=== PATIENT | female | born 1960 ===

== ENCOUNTER 2017-12-10 07:38 | Day surgery (SDC) | payer OTHER ==
[2017-12-10] VITALS (9 sets, daily range): BP systolic 92–120; BP diastolic 62–76
[~2017-12-10] VITALS: Ht 162.6 cm; Wt 80.7 kg
--- NOTE | 2017-12-10 06:30 | Anethesia Preoperative Eval ---
Anesthesia Pre-op PMH/ROS General Date of Evaluation: Dec 10, 2017 Time of Evaluation: 06:28 Anesthesiologist: steph ASA Score: ASA 2 Mallampati Score Class I : Soft palate, uvula, fauces, pillars visible Class II: Soft palate, uvula, fauces visible Class III: Soft palate, base of uvula visible Class IV: Only hard plate visible Mallampati Classification: Class II Surgeon: terry Diagnosis: gerd Surgical Procedure: egd Anesthesia History: none - egd Family History: no anesthesia problems Allergies: Coded Allergies: PENICILLINS (Verified Allergy, Severe, RASH/HIVES, 12/09/17) Medications: see eMAR Past Medical History Gastrointestinal/Genitourinary: Reports: GERD Neurologic/Psychiatric: Reports: depression/anxiety Musculoskeletal/Integumentary: Reports: other - joint pain Other: obesity Anesthesia Pre-op Phys. Exam Physician Exam Last Vital Signs Date Time Temp Pulse Resp B/P (MAP) Pulse Ox O2 Delivery O2 Flow Rate FiO2 12/10/17 08:31 Room Air 12/10/17 08:19 96.5 78 18 120/76 (91) 97 96.5 Constitutional: NAD Neurologic: CN 2-12 intact Cardiovascular: RRR Respiratory: CTA Gastrointestinal: S/NT/ND Airway Exam Mallampati Score: Class II MO: full Neck: supple TMD: 2fb ROM: full Teeth: intact Anesthesia Pre-op A/P Risk Assessment & Plan Assessment: asa2 Plan: mac Status Change Before Surgery: No Pre-Antibiotics Drug: Park Wallace MD Dec 10, 2017 06:30
[~2017-12-10 07:38] MED LIST: Atropine Inj 1mg/10ml Syr IV PRN; DiphenhydrAMINE 50mg/ml Inj IVP PRN; Labetalol 5mg/ml 20ml vial IV PRN; Midazolam 2mg/2ml Inj IVP PRN; fentaNYL 100 mcg/2 mL IV PRN
[2017-12-10] MEDS ORDERED: PANTOPRAZOLE SO40 MG ORAL (08:18)
[2017-12-10] MEDS ORDERED: ZYRTEC10 MG ORAL (08:18)
--- NOTE | 2017-12-10 08:24 | Short Stay Surgery H&P ---
History of Present Illness History of Present Illness Chief Complaint Abdominal pains and GERDs symptoms. BOB Lujan is a 57 year old female who was admitted on for GERD/ Abdominal pains Patient History Allergies: Coded Allergies: PENICILLINS (Verified Allergy, Severe, RASH/HIVES, 12/09/17) PAST MEDICAL HISTORY: (1) Nasal inflammation due to allergen Past Surgeries: (1) S/P operation on nasal septum Medication History Scheduled Cetirizine Hcl* (Zyrtec*), 10 MG ORAL DAILY, (Reported) Pantoprazole* (Pantoprazole*), 40 MG ORAL DAILY, (Reported) Review of Systems Cardiovascular: Reports: no symptoms Respiratory: Reports: no symptoms Skeletal: Reports: trauma Gastrointestinal: Reports: gastro esophageal reflux disease Genitourinary: Reports: no symptoms Neurologic: Reports: no symptoms Endocrine: Reports: no symptoms Hematologic: Reports: no symptoms Physical Exam Skin: normal HENT: normal Lungs: normal Abdomen: abnormal Extremities: normal Genitourinary: normal Plan Plan of Care Upper GI endoscopy with biopsy Preop Interventions None. Summary of Findings See the reports Attestation Are the patient's medical conditions optimized for surgery? Attestation Response: yes Rojelio Solomon MD Dec 10, 2017 08:24
--- NOTE | 2017-12-10 08:25 | Pre-Procedure Note/Attestation ---
Pre-Procedure Note/Attestation Complete Prior to Procedure Planned Procedure: left Procedure Narrative: Examination of the upper GI tract via endoscopic exam Indications for Procedure Pre-Operative Diagnosis: R/O Peptic ulcer/Gastritis/esophagitis. Attestation I attest that I discussed the nature of the procedure; its benefits; risks and complications; and alternatives (and the risks and benefits of such alternatives ), prior to the procedure, with the patient (or the patient's legal patient representative). I attest that, if there was a reasonable possibility of needing a blood transfusion, the patient (or the patient's legal patient representative) was given the [place] [facility] standardized written summary, pursuant to the Nigel Carol Blood Safety Act ([place] Health and Safety Code # 1645, as amended). I attest that I re-evaluated the patient just prior to the surgery and that there has been no change in the patient's H&P, except as documented below: Rojelio Solomon MD Dec 10, 2017 08:25
--- NOTE | 2017-12-10 08:26 | Pre-Procedure Note/Attestation ---
Pre-Procedure Note/Attestation Complete Prior to Procedure Planned Procedure: left Procedure Narrative: Upper Gi endoscopy and biopsy Indications for Procedure Pre-Operative Diagnosis: R/O Peptic ulcer/Gastritis/esophagitis. Attestation I attest that I discussed the nature of the procedure; its benefits; risks and complications; and alternatives (and the risks and benefits of such alternatives ), prior to the procedure, with the patient (or the patient's legal business process representative). I attest that, if there was a reasonable possibility of needing a blood transfusion, the patient (or the patient's legal business process representative) was given the [facility] standardized written summary, pursuant to the Nigel Carol Blood Safety Act ([place] Health and Safety Code # 1645, as amended). I attest that I re-evaluated the patient just prior to the surgery and that there has been no change in the patient's H&P, except as documented below: Rojelio Solomon MD Dec 10, 2017 08:26
[2017-12-10] MEDS ORDERED: Propofol 200mg/20ml IV ONE (08:30)
[2017-12-10] MEDS ORDERED: Lidocaine 1% MPF 10mg/ml 5ml ONE (08:30)
[2017-12-10] MEDS ORDERED: LR 1000ml ONE (08:30)
--- NOTE | 2017-12-10 08:43 | Endoscopy Procedure Note ---
Endoscopy Procedure Note General Indication for Procedure: Abdominal pains and heartburn Procedures Performed: EGD - Moderate generalized gastritis otherwise normal upper GI endoscopy. Biopsy done per random from gastric body. Specimen: yes Estimated Blood Loss: none Anesthesia Anesthesiologist: Dr. Brumfield Anesthesia: moderate sedation Medications Medication Given: see anesthesia record Inserted Devices Implant(s) used?: No Quality Quality of Bowel Preparation: Excellent GI Core Measures 50 yrs or older w/o bx or poly: Not Applicable 10yrs. F/U not recommended: Not Applicable If not recommended, why?: Med reason:<3 yrs.: System Reason:<3 yrs.: Rojelio Solomon MD Dec 10, 2017 08:43
--- NOTE | 2017-12-10 08:44 | Discharge Instructions ---
Discharge Instructions Discharge Instructions Follow up with: Visit the doctor in office after two weeks. For Congestive Heart Failure Reminder Report to your physician any weight gain of 5 pounds or more in one week. Rojelio Solomon MD Dec 10, 2017 08:44
--- NOTE | 2017-12-10 09:02 | Immediate Post-Op Evaluation ---
Immediate Post-Op Evalulation Immediate Post-Op Evalulation Procedure: egd w/bx Date of Evaluation: Dec 10, 2017 Time of Evaluation: 09:02 IV Fluids: 250ml lr Blood Products: none Estimated Blood Loss: negligible Blood Pressure Systolic: 98 Blood Pressure Diastolic: 63 Pulse Rate: 71 Respiratory Rate: 18 O2 Sat by Pulse Oximetry: 100 Temperature (Fahrenheit): 97.0 Pain Score (1-10): 0 Nausea: No Vomiting: No Complications none Patient Status: awake, reacts, patent Hydration Status: adequate Drug: Park Wallace MD Dec 10, 2017 09:02
--- NOTE | 2017-12-10 12:24 | 48 Hour Post Anesthesia Eval ---
Post Anesthesia Evaluation Procedure: egd w/bx Date of Evaluation: Dec 10, 2017 Time of Evaluation: 09:04 Blood Pressure Systolic: 97 0: 65 Pulse Rate: 70 Respiratory Rate: 18 Temperature (Fahrenheit): 97.0 O2 Sat by Pulse Oximetry: 99 Airway: patent Nausea: No Vomiting: No Pain Intensity: 0 Hydration Status: adequate Cardiopulmonary Status: stable Mental Status/LOC: patient returned to baseline Post-Anesthesia Complications: none Follow-up care needed: N/A Park Tirado MD Dec 10, 2017 12:24
--- NOTE | 2017-12-10 18:31 | Operative Note - Dictated ---
DATE OF OPERATION: 12/10/2017 SURGEON: Rojelio Solomon M.D. PROCEDURE: Esophagogastroduodenoscopy with biopsy. PREOPERATIVE DIAGNOSIS: Abdominal pain, epigastric pain, and heartburn. POSTOPERATIVE DIAGNOSES: 1. Moderate-sized hiatal hernia. 2. Moderate generalized gastritis, biopsy was taken per random from gastric body. MEDICATION USED: Per anesthesiologist, Dr. Brumfield. INSTRUMENT: GIF Olympus upper GI video endoscope. DESCRIPTION OF PROCEDURE: The patient after arriving endoscopy unit, was told about risks and benefits of the procedure, which she accepted and signed informed consent. She was then put on the left lateral decubitus position. After adequate IV sedation, the scope was gently passed through the cricopharyngeal area, was lodged in the upper esophagus, and gradually advanced towards gastroesophageal junction. The entire length of the esophagus looked normal without any evidence of pathology such as stricture, inflammatory process, ulcers, etc. GE junction also looked normal. There was no Cohn's, however, the GE junction was located at the 30 cm from the cricopharyngeal area. There was evidence of moderate-sized hiatal hernia noted. At this point, the scope was advanced into the stomach. Gastric cavity was distended and gradually the areas of the fundus and the body and the antrum were examined, which revealed evidence of moderate generalized gastritis presenting with moderate erythema of the gastric mucosa, but there was no ulcers, tumors, bleeding site etc. At this point, one random biopsy from gastric body was obtained and subsequently, the scope was passed through the normal-looking pylorus. First and second portion of duodenum were found to be also completely normal. At this time, the scope was pulled out into the stomach. A retroflexion maneuver was applied and no other pathology found. Finally, the scope was pulled out and the procedure was terminated. The patient tolerated the procedure well and left the endoscopy room in good condition. Rojelio Solomon M.D. DR: SYED JOB#: [id number] CC:
--- NOTE | 2017-12-10 18:31 | Pre-op HX & Phy Repo 2 SIG ---
DATE OF ADMISSION: 12/10/2017 HISTORY OF PRESENT ILLNESS: The applicant is a 57-year-old non-Indian speaking female, who is being seen prior to undergoing the procedure of upper GI endoscopy for which she has been scheduled to receive for evaluation of gastrointestinal condition that she has been experiencing subsequent to her work injury. The applicant basically complained of having pains over the upper part of the abdomen, which is quite cumbersome associated with moderate heartburn. The applicant also report that these symptoms occur after she eats food though she has been under significant stress and anxiety and depression subsequent to her work injury. 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 The applicant denies having any major difficulty swallowing such as dysphagia, odynophagia, etc. There has been no history of hematemesis, melena, hematochezia, gastrointestinal bleeding, etc. The applicant does have history of taking nonsteroidal anti-inflammatory agents such as ibuprofen and Motrin for a long period of time in the past for the treatment of the pain that she has suffered subsequent to her work injury. The injuries were happening mostly in the 2013 when she was pulling a heavy chair and she injured her left upper extremity, left shoulder, and also had other pains over different parts of the body including the neck, etc. She had complete workup in the past by physicians. PAST MEDICAL HISTORY: The applicant denies having high blood pressure, arthritis, hyperlipidemia, diabetes, etc. SURGERIES: The patient has had some nasal surgeries questionably for cancer, but the exact nature of this is not clear. PRESENT MEDICATIONS: Protonix, propionate, fluticasone, and antihistamines. ALLERGIES: Penicillin and pollen and dust. FAMILY HISTORY: None significant. HABITS: The applicant denies drinking alcohol or smoking cigarettes. REVIEW OF SYSTEMS: Basically history of present illness and the patient complains of significant anxiety and stress related to work accident with abdominal pain as I mentioned. PHYSICAL EXAMINATION: GENERAL: At this time reveals an alert and oriented female, does not seem to be in any acute distress. She looks overweight. VITAL SIGNS: All stable. HEENT: Normocephalic. Pupils are equal in size and reactive to light and accommodation. No conjunctival jaundice. NECK: Supple. No JVD, thyromegaly, or adenopathy. CHEST: Clear to auscultation and percussion. No rales or rhonchi. HEART: S1 and S2 normal. Regular rhythm. No gallops or murmur. ABDOMEN: Soft, but there are areas of tenderness all over the abdomen particularly over the epigastric area. No organomegaly or masses noted. EXTREMITIES: No pretibial edema, cyanosis, or clubbing. SKIN AND LYMPHATICS: Not significant. NEUROLOGIC: None significant. PRELIMINARY PREOPERATIVE IMPRESSION: 1. Epigastric pain, abdominal pain of uncertain etiology, rule out peptic ulcer disease induced by NSAID medications. Rule out gastritis or esophagitis caused by NSAID medications. 2. History of bodily injury, work-related. 3. Significant anxiety and depression. RECOMMENDATIONS: The applicant seems to be in a good condition to undergo the procedure of upper GI endoscopy for which she has been scheduled. She understands the risks and benefits and will sign the consent. Said [place] Solomon DR: RIOS JOB#: [id number] CC:
== END 2017-12-10 10:10 | disposition home or self-care (01) ==
LOC: GAS 07:38
DX: K29.50 Unspecified chronic gastritis without bleeding (principal); K44.9 Diaphragmatic hernia without obstruction or gangrene; I10 Essential (primary) hypertension; E78.5 Hyperlipidemia, unspecified; E11.9 Type 2 diabetes mellitus without complications; F41.9 Anxiety disorder, unspecified; F32.9 Major depressive disorder, single episode, unspecified; E66.9 Obesity, unspecified; Z88.0 Allergy status to penicillin
CPT/HCPCS: 43239; J2704; J7120; 94003; 94150